=== PATIENT | female | born 1995 | race African-American/Black ===

== ENCOUNTER → 2023-08-08 | Outpatient (CLI) | payer OTHER | LOC: M WUC 15:32 | PROVIDERS: ATTEND Nurse Practitioner Family | DX: M25.561 Pain in right knee (principal) ==

== ENCOUNTER 2023-12-02 11:41 | Emergency (ER) | payer OTHER ==
[~2023-12-02] VITALS: Ht 149.9 cm; Wt 62.4 kg
[2023-12-02 12:52] LABS: BASO % 0.5 % (0.0-1.0); EOS # 0.1 10^3/uL (0.0-0.5); HEMATOCRIT 36.2 % (36.0-47.0); HEMOGLOBIN 11.7 g/dl (12.0-15.5); LYMPH # 2.2 10^3/uL (1.5-5.0); LYMPH % 38.9 % (24.0-44.0); MEAN CORPUSCULAR HEMOGLOBIN 28.2 pg (27.0-33.0); MEAN CORPUSCULAR HGB CONC 32.3 g/dl (32.0-36.5); MEAN CORPUSCULAR VOLUME 87.2 fl (80.0-96.0); MONO # 0.3 10^3/uL (0.0-0.8); MONO % 5.9 % (2.0-8.0); NEUTROPHILS # 2.9 10^3/uL (1.5-8.5); NEUTROPHILS % 52.5 % (36.0-66.0); PLATELET COUNT, AUTOMATED 285 10^3/uL (150-450); RED BLOOD COUNT 4.15 10^6/uL (4.00-5.40); WHITE BLOOD COUNT 5.6 10^3/uL (4.0-10.0)
[2023-12-02] MEDS ORDERED: BUSP10TA PO (12:58)
[2023-12-02 13:22] LABS: ALBUMIN 3.9 G/DL (3.2-5.2); ALKALINE PHOSPHATASE 112 U/L (46-116); ALT/SGPT 9 U/L (7.0-40); AST/SGOT 13 U/L (<34); BILIRUBIN,DIRECT 0.2 MG/DL (<0.4); BILIRUBIN,TOTAL 0.6 MG/DL (0.3-1.2); TOTAL PROTEIN 7.1 G/DL (5.7-8.2)
[2023-12-02 13:26] LABS: CK-MB VALUE MASS < 1.0 NG/ML (<3.6)
[2023-12-02 13:28] LABS: CPK CREATINE PHOSPHOKINASE 156 U/L (34-145); MB/CK RELATIVE INDEX 0.64 (< OR =4)
[2023-12-02 13:29] LABS: HCG, SERUM QUALITATIVE NEGATIVE (NEGATIVE)
[2023-12-02] MEDS ORDERED: ISOVUE-370 76% 100ML VIAL As Ordered ONE (14:11)
[2023-12-02 14:51] VITALS: BP 126/81; TEMP 97.9; O2SAT 100
== END 2023-12-02 14:52 | disposition home or self-care (01) ==
LOC: M ED 11:41
DX: R07.89 Other chest pain (principal); F41.9 Anxiety disorder, unspecified; F17.200 Nicotine dependence, unspecified, uncomplicated
CPT/HCPCS: 71046; 71275; 80047; 80076; 82550; 82553; 84484; 84703; 85025; 85379; 93005; 99284; Q9967

== ENCOUNTER 2024-10-23 13:34 | Emergency (ER) | payer OTHER ==
[~2024-10-23] VITALS: Ht 149.9 cm; Wt 61.1 kg
[~2024-10-23 13:34] MED LIST: BUSP10TA PO
[2024-10-23] MEDS: NS (Normal Saline) 0.9% 1,000 ML IV ONE (14:44)
[2024-10-23] MEDS: KETOROLAC 30 MG/ML 1 ML VIAL IV ONE (14:45)
[2024-10-23 15:03] LABS: BASO # 0.1 10^3/uL (0.0-0.2); BASO % 1.0 % (0.0-1.0); EOS # 0.1 10^3/uL (0.0-0.5); EOS % 1.4 % (0.0-3.0); LYMPH # 2.2 10^3/uL (1.5-5.0); LYMPH % 43.8 % (24.0-44.0); MONO # 0.5 10^3/uL (0.0-0.8); MONO % 9.4 % (2.0-8.0); NEUTROPHILS # 2.3 10^3/uL (1.5-8.5); NEUTROPHILS % 44.4 % (36.0-66.0); PLATELET COUNT, AUTOMATED 295 10^3/uL (150-450)
[2024-10-23 15:09] LABS: ERYTHROCYTE SEDIMENTATION RATE 5 mm/hr (0-20)
[2024-10-23 15:24] LABS: C REACTIVE PROTEIN QUANTITATIV < 0.50 MG/DL (<1.0); CALCIUM LEVEL 9.4 MG/DL (8.5-10.1); CARBON DIOXIDE LEVEL 26 MMOL/L (20-31); CHLORIDE LEVEL 108 MMOL/L (98-107); CREATININE FOR GFR 0.83 MG/DL (0.55-1.30); GLOMERULAR FILTRATION RATE > 90.0 (>60); POTASSIUM SERUM 4.2 MMOL/L (3.5-5.1); SODIUM LEVEL 143 MMOL/L (136-145)
[2024-10-23] MEDS: dexAMETHasone 4 MG/ML 1 ML VIAL IV ONE (16:43)
[2024-10-23] MEDS: MAG SULF 1GM/100ML (MAG RUN) 1 GM in IV 1 EA IV ONE (16:47)
[2024-10-23 17:49] VITALS: O2SAT 100
[2024-10-23 18:00] VITALS: BP 125/75
[2024-10-23 18:21] VITALS: TEMP 98.7
[2024-10-23] MEDS ORDERED: AMOX875T2 PO (19:30)
[2024-10-23] MEDS ORDERED: ONDA-282 PO (19:32)
[2024-10-23] MEDS: AUGMENTIN 875 MG TAB PO ONE (19:35)
== END 2024-10-23 19:39 | disposition home or self-care (01) ==
LOC: M ED 14:15
DX: J01.90 Acute sinusitis, unspecified (principal); F17.200 Nicotine dependence, unspecified, uncomplicated
CPT/HCPCS: 70450; 80048; 85025; 85652; 86140; 87486; 87581; 87633; 87798; 96361; 96365; 96375; 99284; J1100; J1885; J2765; J3475